=== PATIENT | male | born 1975 | race Caucasian/White ===

== ENCOUNTER 2021-11-05 12:56 | Emergency (ER) | payer OTHER, MEDICAID, SELFPAY ==
[2021-11-05 13:10] VITALS: BP 115/71; PULSE 72; RESP 18; TEMP 36.7; O2SAT 99; BMI 25.7
--- NOTE | 2021-11-05 15:19 | ED_ITS ---
HPI - Skin/Abscess/Foreign Bdy <Cullen Schwartz PA-C - Last Filed: 11/05/21 18:04> General Chief complaint: Skin/Abscess/Foreign Body Stated complaint: Painful lumps on head/vision problems Time Seen by Provider: 11/05/21 13:05 Source: patient Mode of arrival: Family Vehicle Limitations: no limitations History of Present Illness HPI narrative: Patient is a 46-year-old male to the emergency room today with complaint of painful bumps to the head and face. Patient states this started 3 days ago. 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 Associated right eye pain in balance concerns. Denies any other concerns at this time. Related Data Previous Rx's Medication Instructions Recorded iuaajiphpo-vqefbgkqficzn-evpexyet 0 tab PO Q4HP PRN #30 tabs 12/11/16 50 mg-325 mg-40 mg tablet cyclobenzaprine 10 mg tablet 10 mg PO SEE INSTRUCTIONS #30 tabs 12/11/16 ibuprofen 800 mg tablet 800 mg PO Q8HP PRN #90 tabs 12/11/16 omeprazole 20 mg capsule,delayed 20 mg PO BID #60 caps 12/11/16 release ondansetron 8 mg disintegrating 8 mg sublingual SEE INSTRUCTIONS 12/11/16 tablet #30 tabs oxycodone-acetaminophen 5 mg-325 1 tab PO BID PRN #60 tabs 12/11/16 mg tablet (Percocet) acyclovir 800 mg tablet 800 mg PO 5XD #35 tabs 11/05/21 ondansetron 4 mg disintegrating 4 mg PO Q8H #1 tab 11/05/21 tablet Allergies Allergy/AdvReac Type Severity Reaction Status Date / Time hydroxyzine [HYDROXYZINE] Allergy Mild Bad Dream Unverified 07/04/17 12:07 Anesthetics - Amide Type - Allergy Unknown Unverified 07/04/17 12:07 Select A [ANESTHETICS - AMIDE TYPE] Anesthetics - Nedra Type- Allergy Unknown Unverified 07/04/17 12:07 Parabens [ANESTHETICS - NEDRA TYPE] Review of Systems <Cullen Schwartz PA-C - Last Filed: 11/05/21 18:04> Review of Systems Narrative: R.O.S.: General: No fever, chills, fatigue or other concerns. Cardiovascular: No chest pain, palpitations or other Cardiovascular related concerns. Respiratory: No S.O.B. or other Respiratory related concerns. HEENT: No congestion, ear pain, rhinorrhea, sore throat or tinnitus Gastrointestinal: No nausea, vomiting or other Gastrointestinal related concerns. Skin: Painful Bumps to face and head Neurological: Awake, alert and in not apparent distress. No Headaches, changes in vision or other related neurological concerns. Patient History <Cullen Schwartz PA-C - Last Filed: 11/05/21 18:04> Social History Smoking Status: Current every day smoker Smoking Status: Current every day smoker tobacco type: cigarettes alcohol intake frequency: 0-2 drinks per day Substance Use Type: marijuana, heroin and methamphetamine Exam <Cullen Schwartz PA-C - Last Filed: 11/05/21 18:04> Narrative Exam Narrative: Patient has an area slightly raised erythematous papules that are about 0.25 cm in diameter. The papules are nonfluctuant and tender to touch. Papules on the forehead on about a 7 in number that are on the right forehead forehead and extends to midline but not past midline of the face. Patient also has area of the same type papular on the right frontal lobe area. Papules are tightly group and/or about 5 in number. Initial Vital Signs Initial Vital Signs: Vital Signs Temperature 98.0 F 11/05/21 13:10 Pulse Rate 72 11/05/21 13:10 Respiratory Rate 18 11/05/21 13:10 Blood Pressure 115/71 11/05/21 13:10 Pulse Oximetry 99 11/05/21 13:10 Oxygen Delivery Method 11/05/21 13:10 <Feli Valles DO - Last Filed: 11/06/21 07:08> Initial Vital Signs Initial Vital Signs: Vital Signs Temperature 98.0 F 11/05/21 13:10 Pulse Rate 72 11/05/21 13:10 Respiratory Rate 18 11/05/21 13:10 Blood Pressure 115/71 11/05/21 13:10 Pulse Oximetry 99 11/05/21 13:10 Oxygen Delivery Method 11/05/21 13:10 Course <Cullen Schwartz PA-C - Last Filed: 11/05/21 18:04> Orders Ordered: Discontinued Medications Ondansetron HCl (Ondansetron 4 Mg Odt) 4 mg SL NOW ONE Stop: 11/05/21 15:36 Last Admin: 11/05/21 15:39 Dose: 4 mg Documented By: MARLENE Vital Signs Vital signs: Vital Signs - 8 hr 11/05/21 13:10 Temperature 98.0 F Pulse Rate 72 Respiratory Rate 18 Blood Pressure 115/71 Pulse Oximetry 99 Oxygen Delivery Method Room Air <Feli Valles DO - Last Filed: 11/06/21 07:08> Orders Ordered: Discontinued Medications Ondansetron HCl (Ondansetron 4 Mg Odt) 4 mg SL NOW ONE Stop: 11/05/21 15:36 Last Admin: 11/05/21 15:39 Dose: 4 mg Documented By: MARLENE Vital Signs Vital signs: Vital Signs - 8 hr 11/05/21 13:10 Temperature 98.0 F Pulse Rate 72 Respiratory Rate 18 Blood Pressure 115/71 Pulse Oximetry 99 Oxygen Delivery Method Room Air MDM - Skin/Abscess/Foreign Bdy <Cullen Schwartz PA-C - Last Filed: 11/05/21 18:04> MDM Narrative Medical decision making narrative: Patient is a 46-year-old male who presents to the emergency room today with complaint of painful bumps to the face and forehead area. On physical exam the patient was noted to have painful papule pills to the left hand and forehead did not cross midline. Physical exam is consistent with shingles. Neurological exam is within normal limits acyclovir or 5 days. This provider discussed shingles and completed concerns the patient denies patient to return to the emergency room if any emergent concerns arise. Patient agrees with plan Discharge Plan Departure Patient Disposition: Home Clinical Impression: Shingles Instructions: DI for Shingles Activity Restrictions/Additional Instructions: *You have been diagnosed with [Shingles ]. I suggest you pick up attendant your medications from the pharmacy soon and take meds as ordered. *What to do: *Please continue to take your regular medications as directed. [ x] New medication prescriptions sent to your pharmacy: [ ] [ ] New medication written as a paper prescription [ ] No new medications given *Please follow up with your primary care provider in 2-3 days, call for an appointment. Let them know you were seen in the Emergency Department and that we ask that you be seen in follow up. We will electronically transmit a record of today's note if your PCP is in our system *If you do not have a primary care provider please contact the [facility] Resource line at [phone]. They will ask some questions about your medical history and help get you set up with a doctor in the community. *Return to Emergency Department if you should have any new, worsening or concerning symptoms, such as [fever greater than 101 F, shaking chills, worsening pain, persistent vomiting or other bothersome symptoms] Prescriptions: New acyclovir 800 mg tablet 800 mg PO 5XD Qty: 35 0RF Rx Instructions: space evenly during waking hours ondansetron 4 mg tablet,disintegrating 4 mg PO Q8H Qty: 1 0RF No Action cyclobenzaprine 10 MG tablet 10 mg PO SEE INSTRUCTIONS Qty: 30 0RF ibuprofen 800 MG tablet 800 mg PO Q8HP PRNQty: 90 0RF ondansetron 8 MG tablet,disintegrating 8 mg Sublingual SEE INSTRUCTIONS Qty: 30 0RF apgorsmbok-yvkrgllilrnqo-cwse 1 EACH tablet 0 tab PO Q4HP PRNQty: 30 0RF oxycodone-acetaminophen [Percocet] 5 MG/325 MG tablet 1 tab PO BID PRNQty: 60 0RF omeprazole 20 MG capsule,delayed release(DR/EC) 20 mg PO BID Qty: 60 0RF Referrals: Tatum Forman DO [Primary Care Provider] - Visit Report Forms: Patient Portal/API <Feli Valles DO - Last Filed: 11/06/21 07:08> Cosign ED Attending Brittnee Attestation: I was immediately available in the department for consultation. Documentation has been reviewed. I agree with assessment and plan.
[2021-11-05] MEDS: ONDANSETRON 4 MG ODT SL (15:39)
== END 2021-11-05 15:41 | disposition home or self-care (01) ==
PROVIDERS: Emergency Provider Physician Assistant; Family Provider Family Medicine; PCP Family Medicine
DX: B02.9 Zoster without complications (principal)
CPT/HCPCS: 99282; 99283

== ENCOUNTER 2023-03-31 16:11 | Emergency (ER) | payer OTHER, MEDICAID, SELFPAY ==
[2023-03-31 16:16] VITALS: BP 113/78; PULSE 80; RESP 16; TEMP 36.7; O2SAT 98; BMI 22.0
--- NOTE | 2023-03-31 16:37 | DI.RAD.S_ITS ---
PROCEDURE: XR CHEST 1V INDICATIONS: cough/congestion TECHNIQUE: One view of the chest was acquired. COMPARISON: [facility], , CHEST 2 VIEW, 11/14/2011, 9:59. FINDINGS: Surgical changes and devices: None. Lungs and pleura: Patchy hazy opacities at the right lung base. No pleural effusions or pneumothorax. Mediastinum: Mediastinal contours appear normal. Heart size is normal. Bones and chest wall: No suspicious bony lesions. Overlying soft tissues appear unremarkable. IMPRESSION: Patchy and hazy opacities at the right lung base is nonspecific, may represent pneumonia in the appropriate clinical setting. Dictated by: Jennie Salcido M.D. on 03/31/2023 at 17:15 Approved by: Jennie Salcido M.D. on 03/31/2023 at 17:16
[2023-03-31 17:39] LABS: Adenovirus Not Detected (Not Detect); B. parapertussis Not Detected (Not Detecte); Bordetella pertussis Not Detected (Not Detect); Chlamydophila pneumoniae Not Detected (Not Detect); Coronavirus 229E Not Detected (Not Detect); Coronavirus HKU1 Not Detected (Not Detect); Coronavirus NL 63 Not Detected (Not Detect); Coronavirus OC43 Not Detected (Not Detect); Human Metapneumovirus Not Detected (Not Detect); Human Rhinovirus/Enterovirus Not Detected (Not Detect); Influenza A Not Detected (Not Detect); Influenza B Not Detected (Not Detect); Mycoplasma pneumoniae Not Detected (Not Detect); Parainfluenza Virus 1 Not Detected (Not Detect); Parainfluenza Virus 2 Not Detected (Not Detect); Parainfluenza Virus 3 Not Detected (Not Detect); Parainfluenza Virus 4 Not Detected (Not Detect); Respiratory Syncytial Virus Not Detected (Not Detect); SARS- CoV-2 Detected (Not Detecte)
[2023-03-31 18:22] VITALS: BP 115/79; PULSE 82; RESP 24; TEMP 36.8; O2SAT 99
--- NOTE | 2023-03-31 18:37 | ED_ITS ---
HPI - URI/Sore Throat <Espinoza Romano PA-C - Last Filed: 03/31/23 18:47> General Chief Complaint: Upper Respiratory Symptoms Stated Complaint: exhaustion/can't eat/N Time Seen by Provider: 03/31/23 16:40 Source: patient Mode of arrival: Ambulatory History of Present Illness HPI Narrative: This is a 48-year-old male presents emergency department due to 4 days of a ?chest cold? as well as fatigue and sinus congestion and cough. As well as some nausea. Reports 2 days of chest pain described as dull and aching sensation with mild shortness of breath. Homeless in the last used meth 4 days ago. Related Data Previous Rx's Medication Instructions Recorded nckqdohyfj-ceeiwzotiwgyj-piblfheo 0 tab PO Q4HP PRN #30 tabs 12/11/16 50 mg-325 mg-40 mg tablet cyclobenzaprine 10 mg tablet 10 mg PO SEE INSTRUCTIONS #30 tabs 12/11/16 ibuprofen 800 mg tablet 800 mg PO Q8HP PRN #90 tabs 12/11/16 omeprazole 20 mg capsule,delayed 20 mg PO BID #60 caps 12/11/16 release ondansetron 8 mg disintegrating 8 mg sublingual SEE INSTRUCTIONS 12/11/16 tablet #30 tabs oxycodone-acetaminophen 5 mg-325 1 tab PO BID PRN #60 tabs 12/11/16 mg tablet (Percocet) acyclovir 800 mg tablet 800 mg PO 5XD #35 tabs 11/05/21 ondansetron 4 mg disintegrating 4 mg PO Q8H #1 tab 11/05/21 tablet amoxicillin 875 mg-potassium 1 tab PO BID #10 tabs 03/31/23 clavulanate 125 mg tablet azithromycin 500 mg tablet 500 mg PO DAILY 3 days #3 tabs 03/31/23 ondansetron HCl 4 mg tablet 4 mg PO Q8H PRN nausea and 03/31/23 vomiting #20 tabs Allergies Allergy/AdvReac Type Severity Reaction Status Date / Time hydroxyzine [HYDROXYZINE] Allergy Mild Bad Dream Unverified 07/04/17 12:07 Anesthetics - Amide Type - Allergy Unknown Unverified 07/04/17 12:07 Select A [ANESTHETICS - AMIDE TYPE] Anesthetics - Nedra Type- Allergy Unknown Unverified 07/04/17 12:07 Parabens [ANESTHETICS - NEDRA TYPE] Review of Systems <Espinoza Romano PA-C - Last Filed: 03/31/23 18:47> Review of Systems Narrative: GENERAL: Reports fatigue Denies chills, , malaise, fever, sweats. HEENT: Denies sinus pain, ear pain, sore throat, difficulty swallowing, dizziness. RESPIRATORY: Reports shortness of breath Denies wheezing, hemoptysis, sputum. CARDIOVASCULAR: Reports chest pain denies, palpitations, orthopnea, edema, GASTROINTESTINAL: Denies nausea, vomiting, abdominal pain, diarrhea, constip ation, melena. : Denies dysuria, frequency, incontinence, hematuria, urinary retention. MUSCULOSKELETAL: denies weakness, joint pain, or bony pain SKIN: Denies rash, skin lesions, or other NEUROLOGIC: Denies weakness, headache, numbness, change in speech, confusion, seizures, incoordination. PSYCHIATRIC: No concerning psychosocial issues. 12 point review of systems is negative except for those stated above Patient History <Espinoza Romano PA-C - Last Filed: 03/31/23 18:47> Social History Smoking Status: Current every day smoker Smoking Status: Current every day smoker tobacco type: cigarettes alcohol intake frequency: 0-2 drinks per day Substance Use Type: methamphetamine Exam <Espinoza Romano PA-C - Last Filed: 03/31/23 18:47> Narrative Exam Narrative: GENERAL: Well-developed patient, in mild distress. Disheveled HEAD: Atraumatic. Normocephalic. EYES: Pupils equal round and reactive. Extraocular motions intact. No scleral icterus. No injection or drainage. ENT: Nose without bleeding, purulent drainage. Throat without erythema, tonsillar hypertrophy or exudate. Airway patent. NECK: Trachea midline. Non tender EXTREMITIES: No edema or joint tenderness. NEURO: AOx3. SKIN: No rash or erythema of visible areas CARDIOVASCULAR: Regular rate and rhythm without murmurs, gallops, or rubs. RESPIRATORY: Slight rhonchi to the right lower lung GASTROINTESTINAL: Abdomen soft, non-tender, nondistended. BACK: Nontender without deformity or crepitance. No flank tenderness. Initial Vital Signs Initial Vital Signs: Vital Signs Temperature 98.0 F 03/31/23 16:16 Pulse Rate 80 03/31/23 16:16 Respiratory Rate 16 03/31/23 16:16 Blood Pressure 113/78 03/31/23 16:16 Pulse Oximetry 98 03/31/23 16:16 Oxygen Delivery Method Room Air 03/31/23 16:16 <Phillip Lowry DO - Last Filed: 04/01/23 07:01> Initial Vital Signs Initial Vital Signs: Vital Signs Temperature 98.0 F 03/31/23 16:16 Pulse Rate 80 03/31/23 16:16 Respiratory Rate 16 03/31/23 16:16 Blood Pressure 113/78 03/31/23 16:16 Pulse Oximetry 98 03/31/23 16:16 Oxygen Delivery Method Room Air 03/31/23 16:16 Course <Espinoza Romano PA-C - Last Filed: 03/31/23 18:47> Orders Ordered: ED Orders 03/31/23 16:37 XR chest 1V Stat 03/31/23 17:00 Respiratory Panel (Film Array) Stat 03/31/23 17:02 EKG-12 Lead Stat Vital Signs Vital signs: Vital Signs - 8 hr 03/31/23 16:16 03/31/23 18:22 Temperature 98.0 F 98.3 F Pulse Rate 80 82 Respiratory Rate 16 24 Blood Pressure 113/78 115/79 Pulse Oximetry 98 99 Oxygen Delivery Method Room Air Room Air <DO Bernadine Rangel Last Filed: 04/01/23 07:01> Orders Ordered: ED Orders 03/31/23 16:37 XR chest 1V Stat 03/31/23 17:00 Respiratory Panel (Film Array) Stat 03/31/23 17:02 EKG-12 Lead Stat Vital Signs Vital signs: Vital Signs - 8 hr 03/31/23 16:16 03/31/23 18:22 Temperature 98.0 F 98.3 F Pulse Rate 80 82 Respiratory Rate 16 24 Blood Pressure 113/78 115/79 Pulse Oximetry 98 99 Oxygen Delivery Method Room Air Room Air MDM - URI/Sore Throat <KEVIN Edwards Last Filed: 03/31/23 18:47> Lab Data Labs: Lab Results 03/31/23 Range/Units 17:00 Chlamy pneumoniae PCR Not detected (Not Detect) Adenovirus (PCR) Not detected (Not Detect) B.parapertussis DNA PCR Not detected (Not Detecte) Coronavirus OC43 (PCR) Not detected (Not Detect) Coronavirus HKU1 (PCR) Not detected (Not Detect) Coronavirus 229E (PCR) Not detected (Not Detect) SARS-CoV-2 (PCR) Detected H (Not Detecte) Coronavirus NL63 (PCR) Not detected (Not Detect) Human Metapneumovir PCR Not detected (Not Detect) Influenza Type A (PCR) Not detected (Not Detect) Influenza Type B (PCR) Not detected (Not Detect) M. pneumoniae (PCR) Not detected (Not Detect) Parainfluenza 1 (PCR) Not detected (Not Detect) Parainfluenza 2 (PCR) Not detected (Not Detect) Parainfluenza 3 (PCR) Not detected (Not Detect) Parainfluenza 4 (PCR) Not detected (Not Detect) RSV (PCR) Not detected (Not Detect) Entero/Rhino (PCR) Not detected (Not Detect) Imaging Data Chest x-ray: Radiologist's Impression: [address] [address] XRay Report Signed Patient: Phillip Gardner MR#: [id number] : 1975 Acct:[id number] Age/Sex: 48 / M Date of Service: 03/31/23 Loc: Accession Number: [id number] Procedure: XR chest 1V Ordering Provider: Espinoza Romano P.A-C PROCEDURE: XR CHEST 1V INDICATIONS: cough/congestion TECHNIQUE: One view of the chest was acquired. COMPARISON: [facility], CHEST 2 VIEW, 11/14/2011, 9:59. FINDINGS: Surgical changes and devices: None. Lungs and pleura: Patchy hazy opacities at the right lung base. No pleural effusions or pneumothorax. Mediastinum: Mediastinal contours appear normal. Heart size is normal. Bones and chest wall: No suspicious bony lesions. Overlying soft tissues appear unremarkable. IMPRESSION: Patchy and hazy opacities at the right lung base is nonspecific, may represent pneumonia in the appropriate clinical setting. Dictated by: Jennie Salcido M.D. on 03/31/2023 at 17:15 Approved by: Jennie Salcido M.D. on 03/31/2023 at 17:16 ECG Data Interpretation: EKG is normal sinus rhythm rate 65 and free of any signs of ischemia or ectopy. No ST segmental elevation or depression. No T wave inversions. Right bundle- branch block MDM Narrative Medical decision making narrative: ED course: This is a homeless 48-year-old male presents to the emergency department due to 4 days of URI symptoms as well as some chest pain. EKG showed no ST elevation or T-wave changes. He states that was pleuritic in nature. Chest x-ray showed evidence of possible bacterial pneumonia to the right lower lobe. We will treat with Augmentin as has a history of meth and tobacco use as well as azithromycin. Also tested positive for COVID. Discussed nature of self-limiting disease. Vitals reassuring. Patient is homeless and disheveled but overall physical exam reassuring and felt comfortable with outpatient treatment. CC: Chest cold Complicating co-morbidities: Tobacco and meth use Data collected from: Previous notes Medical records reviewed: Patient was last seen here in emergency department for shingles. Differential considered, but not limited to: Pneumonia, ACS, viral URI Exam documented above, pertinent findings include: Rhonchi to right lower lobe Lab Test results independently reviewed as above. Pertinent findings: Positive for COVID-19 Imaging studies independently reviewed: Chest x-ray showed evidence of possible right lung bacterial pneumonia Scores Used: None MIPS Elements: None Consultations: None Treatments: None Re-evaluations: None Discussion: Discussed plan with the patient was comfortable with the plan Diagnosis: COVID-19, bacterial pneumonia Disposition: see below, along with detailed discharge instructions that have been reviewed with patient as well as indications for ED re-evaluation and additional outpatient follow up <Phillip Lowry, - Last Filed: 04/01/23 07:01> Lab Data Labs: Lab Results 03/31/23 Range/Units 17:00 Chlamy pneumoniae PCR Not detected (Not Detect) Adenovirus (PCR) Not detected (Not Detect) B.parapertussis DNA PCR Not detected (Not Detecte) Coronavirus OC43 (PCR) Not detected (Not Detect) Coronavirus HKU1 (PCR) Not detected (Not Detect) Coronavirus 229E (PCR) Not detected (Not Detect) SARS-CoV-2 (PCR) Detected H (Not Detecte) Coronavirus NL63 (PCR) Not detected (Not Detect) Human Metapneumovir PCR Not detected (Not Detect) Influenza Type A (PCR) Not detected (Not Detect) Influenza Type B (PCR) Not detected (Not Detect) M. pneumoniae (PCR) Not detected (Not Detect) Parainfluenza 1 (PCR) Not detected (Not Detect) Parainfluenza 2 (PCR) Not detected (Not Detect) Parainfluenza 3 (PCR) Not detected (Not Detect) Parainfluenza 4 (PCR) Not detected (Not Detect) RSV (PCR) Not detected (Not Detect) Entero/Rhino (PCR) Not detected (Not Detect) Discharge Plan Departure Patient Disposition: Home Clinical Impression: COVID, Pneumonia Instructions: DI for Pneumonia -- Adult, COVID-19 Activity Restrictions/Additional Instructions: Thank you for coming to the [facility] Emergency Department today. As we discussed you test positive for COVID as well as your x-ray showing p ossible pneumonia. Please take the antibiotics as prescribed. The COVID infection should improve on its own in the next couple of weeks. Please return to the emergency department if you develop any significant pain, high fevers, or any other concerning signs or symptoms. I hope you feel better soon. Please follow up with your primary care provider within a week if your symptoms continue. If you do not have a primary care provider please contact the [facility] Resource line at [phone]. They will ask some questions about your medical history and help you get set up with a provider in the community. Prescriptions: New amoxicillin-pot clavulanate 875-125 mg tablet 1 tab PO BID Qty: 10 0RF azithromycin 500 mg tablet 500 mg PO DAILY 3 Days Qty: 3 0RF ondansetron HCl 4 mg tablet 4 mg PO Q8H PRN (Reason: nausea and vomiting) Qty: 20 0RF No Action cyclobenzaprine 10 MG tablet 10 mg PO SEE INSTRUCTIONS Qty: 30 0RF ibuprofen 800 MG tablet 800 mg PO Q8HP PRNQty: 90 0RF ondansetron 8 MG tablet,disintegrating 8 mg Sublingual SEE INSTRUCTIONS Qty: 30 0RF aqjexfbfvw-ngdrktnztxhaj-yldw 1 EACH tablet 0 tab PO Q4HP PRNQty: 30 0RF oxycodone-acetaminophen [Percocet] 5 MG/325 MG tablet 1 tab PO BID PRNQty: 60 0RF omeprazole 20 MG capsule,delayed release(DR/EC) 20 mg PO BID Qty: 60 0RF acyclovir 800 mg tablet 800 mg PO 5XD Qty: 35 0RF Rx Instructions: space evenly during waking hours ondansetron 4 mg tablet,disintegrating 4 mg PO Q8H Qty: 1 0RF Referrals: Tatum Forman DO [Primary Care Provider] - Stand Alone Forms: Patient Portal/API ED Sign-out <Phillip Lowry DO - Last Filed: 04/01/23 07:01> Cosign ED Attending Cosignature Attestation: Dr Lowry Co-Sign Statement: I was available for consultation during this patient's emergency department visit. This chart is signed by myself for administrative purposes only. I did not have direct contact with this patient during this visit. They were seen independently by the APC.
== END 2023-03-31 18:51 | disposition home or self-care (01) ==
PROVIDERS: Emergency Provider Physician Assistant Medical; Family Provider Family Medicine; PCP Family Medicine
DX: U07.1 COVID-19 (principal); J18.9 Pneumonia, unspecified organism; R07.9 Chest pain, unspecified; F17.200 Nicotine dependence, unspecified, uncomplicated
CPT/HCPCS: 71045; 87633; 93005; 99283; 99284

== ENCOUNTER 2023-11-19 16:41 | Emergency (ER) | payer OTHER, MEDICAID, SELFPAY ==
[2023-11-19 16:42] VITALS: BP 128/81; PULSE 97; RESP 16; TEMP 36.6; O2SAT 100; BMI 21.9
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
== END 2023-11-19 18:06 | disposition home or self-care (01) ==
PROVIDERS: Emergency Provider Emergency Medicine; Family Provider Family Medicine; PCP Family Medicine
DX: M25.512 Pain in left shoulder (principal); M25.511 Pain in right shoulder
CPT/HCPCS: 73030; 99283